=== PATIENT | female | born 1970 | race Caucasian/White ===

== ENCOUNTER 2019-03-22 23:30 | Inpatient (IN) | payer BC ==
[~2019-03-22] VITALS: Ht 162.6 cm; Wt 96.0 kg
[2019-03-23] MEDS ORDERED: SOD CHLORIDE 0.9% 1,000 ML IV ONE
--- NOTE | 2019-03-23 01:04 | ERD ---
ER Documentation Chief Complaint Chief Complaint Pt reports CP x 2-3 hours, SOB HPI This is a 48-year-old female presents for evaluation of chest pain and shortness of breath. Patient states that she has been having this for several hours, she reports that she has been having vaginal bleeding, and has felt generally weak. She was recently started on oral contraceptive therapy for her vaginal bleeding. She denies any leg swelling, she has not had any hemoptysis, no history of DVT or coagulopathy. ROS All systems reviewed and are negative except as per history of present illness. PMhx/Soc Medical and Surgical Hx: pt denies Medical Hx, pt denies Surgical Hx Hx Alcohol Use: No Hx Substance Use: No Hx Tobacco Use: No Smoking Status: Never smoker Physical Exam Vitals Vital Signs Date Temp Pulse Resp B/P (MAP) Pulse Ox O2 O2 Flow FiO2 Time Delivery Rate 03/23/19 99.1 89 19 129/67 100 Room Air 01:12 (87) 03/23/19 99.1 95 20 143/77 100 Room Air 00:32 (99) 03/22/19 99.1 97 20 147/76 99 Room Air 23:52 (99) 03/22/19 99.1 106 20 139/65 99 23:35 (89) Physical Exam Const: No acute distress Head: Atraumatic Eyes: Normal Conjunctiva ENT: Normal External Ears, Nose and Mouth. Neck: Full range of motion. No meningismus. Resp: Clear to auscultation bilaterally Cardio: Regular rate and rhythm, no murmurs Abd: Soft, non tender, non distended. Normal bowel sounds Skin: Skin is pale, no rashes. Back: No midline or flank tenderness Ext: No cyanosis, or edema Neur: Awake and alert Psych: Normal Mood and Affect Result Diagram: 03/22/19234603/22/192346 Results 24 hrs Laboratory Tests Test 03/22/19 23:47 03/22/19 23:55 03/23/19 00:07 White Blood Count 16.2 10^3/ul Red Blood Count 3.29 10^6/ul Hemoglobin 7.6 g/dl Hematocrit 25.1 % Mean Corpuscular Volume 76.3 fl Mean Corpuscular Hemoglobin 23.1 pg Mean Corpuscular 30.3 g/dl Hemoglobin Concent Red Cell Distribution Width 17.4 % Platelet Count 537 10^3/UL Mean Platelet Volume 8.8 fl Immature Granulocytes % 1.000 % Neutrophils % 68.2 % Lymphocytes % 24.1 % Monocytes % 4.8 % Eosinophils % 1.7 % Basophils % 0.2 % Nucleated Red Blood Cells % 0.0 /100WBC Immature Granulocytes # 0.160 10^3/ul Neutrophils # 11.1 10^3/ul Lymphocytes # 3.9 10^3/ul Monocytes # 0.8 10^3/ul Eosinophils # 0.3 10^3/ul Basophils # 0.0 10^3/ul Nucleated Red Blood Cells # 0.0 10^3/ul Sodium Level 142 mmol/L Potassium Level 4.0 mmol/L Chloride Level 106 mmol/L Carbon Dioxide Level 25 mmol/L Anion Gap 11 Blood Urea Nitrogen 15 mg/dl Creatinine 0.92 mg/dl Est Glomerular Filtrat > 60 mL/min Rate mL/min Glucose Level 109 mg/dl Calcium Level 9.1 mg/dl Total Bilirubin 0.2 mg/dl Direct Bilirubin 0.00 mg/dl Indirect Bilirubin 0.2 mg/dl Aspartate Amino 20 IU/L Transf (AST/SGOT) Alanine 24 IU/L Aminotransferase (ALT/SGPT) Alkaline Phosphatase 59 IU/L Troponin I < 0.012 ng/ml Total Protein 7.9 g/dl Albumin 4.3 g/dl Globulin 3.60 g/dl Albumin/Globulin Ratio 1.19 Triglycerides Level 291 mg/dl Cholesterol Level 230 mg/dl LDL Cholesterol, Calculated 138 mg/dl HDL Cholesterol 34 mg/dl Cholesterol/HDL Ratio 6.7 RATIO Thyroid Stimulating 5.350 MIU/L Hormone (TSH) Urine Color STRAW Urine Clarity CLEAR Urine pH 7.0 Urine Specific [place] 1.005 Urine Ketones NEGATIVE mg/dL Urine Nitrite NEGATIVE mg/dL Urine Bilirubin NEGATIVE mg/dL Urine Urobilinogen NEGATIVE mg/dL Urine Leukocyte Esterase NEGATIVE Maggie/ul Urine Microscopic RBC 1 /HPF Urine Microscopic WBC 1 /HPF Urine Bacteria FEW /HPF Urine Hemoglobin 3+ mg/dL Urine Glucose NEGATIVE mg/dL Urine Total Protein NEGATIVE mg/dl POC Beta HCG, Qualitative NEGATIVE Current Medications Medications Dose Sig/Juanis Start Time Status Last (Trade) Ordered Route PRN Stop Time Admin Dose Reason Admin Sodium 1,000 ml @ Q1H ONCE 03/23/19 DC 03/23/19 Chloride 1,000 mls/hr IV 00:00 00:02 03/23/19 00:59 Sodium 0 ml @ 0 Q0M ONCE 03/23/19 DC Chloride mls/hr IV 01:43 03/23/19 01:46 Procedures/MDM This is a 48-year-old female presents for chest pain and shortness of breath and this in the setting of abnormal uterine bleeding. Her ultrasound showed no acute findings, her cardiac work-up was negative, I have a low suspicion for pulmonary embolism of the etiology of her symptoms given that the most likely reason is symptomatic anemia, with a hemoglobin of 7.1. EKG: Rate/Rhythm: Sinus tachycardia QRS, ST, T-waves: No changes consistent w/ acute ischemia Impression: No evidence of ischemia or arrhythmia Accepting Care Team: Current data and ongoing care discussed. Primary: Tam Consulting: None Outstanding Data: none Departure Diagnosis: Primary Impression: Chest pain Chest pain type: unspecified Qualified Codes: R07.9 - Chest pain, unspecified Additional Impression: Anemia Anemia type: unspecified type Qualified Codes: D64.9 - Anemia, unspecified Condition: Stable ALEX MARTINO MD Mar 23, 2019 01:02
[2019-03-23] MEDS ORDERED: SOD CHLORIDE 0.9% 0 ML IV ONE (01:43)
[2019-03-23 04:17] VITALS: Ht 162.6 cm; Wt 96.0 kg
[2019-03-23] MEDS ORDERED: NITROGLYCERIN (SL) 0.4 MG TAB SL PRN (05:00)
[2019-03-23] MEDS ORDERED: ACETAMINOPHEN 325 MG TAB PO PRN (05:00)
[2019-03-23] MEDS ORDERED: ONDANSETRON 4 MG INJ IV PRN (05:00)
[2019-03-23 07:10] VITALS: BP 111/62; PULSE 83; RESP 18
[2019-03-23] MEDS ORDERED: ASPIRIN 81 MG TAB PO SCH (09:00)
--- NOTE | 2019-03-23 10:44 | HP ---
Date/Time of Note Date/Time of Note DATE: 03/23/19 TIME: 10:01 Assessment/Plan VTE Prophylaxis SCD contraindicated: other Pharmacological prophylaxis: other Pharm contraindication: other Lines/Catheters IV Catheter Type (from Nrs): Peripheral IV Urinary Cath still in place: No Assessment/Plan Assessment/Plan - Acute Chest pain, r/o acute coronary syndrome. No chest pain reported at present - admit to tele unit - Cardiology consult appreciated- Dr Mercado notified - Leukocytosis- possibly 2/2 mild UTI -will get ID consult -Anemia; transfuse PRN - status post 2 units of PRBC transfusion - FU CBC post transfusion- pending - Vaginal Bleeding - none reported today ; but patient sated she has bleeding from weeks and is seeing an OBGYN who started her on hormones pills; but she started more bleeding. - in service coordinator consult appreciated --Borderline urinary tract infection- patient denies any symptoms - Hypertension- stable - Hypothyroidism- TSH 5.350 - repeat TSH x 4 weeks - Hyperlipidemia - start on Atorvastatin - Thrombocytosis - monitor - SCDs for DVT prophylaxis Dw Dr Turcios Result Diagram: 03/22/19 2347 03/22/19 2347 Results 24hrs Laboratory Tests Test 03/22/19 23:47 03/22/19 23:48 03/22/19 23:55 03/23/19 00:07 White Blood Count 16.2 H Red Blood Count 3.29 L Hemoglobin 7.6 L Hematocrit 25.1 L Mean Corpuscular 76.3 L Volume Mean Corpuscular 23.1 L Hemoglobin Mean Corpuscular 30.3 L Hemoglobin Concent Red Cell 17.4 H Distribution Width Platelet Count 537 H Mean Platelet Volume 8.8 Immature 1.000 H Granulocytes % Neutrophils % 68.2 Lymphocytes % 24.1 Monocytes % 4.8 Eosinophils % 1.7 Basophils % 0.2 Nucleated Red Blood 0.0 Cells % Immature 0.160 H Granulocytes # Neutrophils # 11.1 H Lymphocytes # 3.9 H Monocytes # 0.8 Eosinophils # 0.3 Basophils # 0.0 Nucleated Red Blood 0.0 Cells # Sodium Level 142 Potassium Level 4.0 Chloride Level 106 Carbon Dioxide Level 25 Anion Gap 11 Blood Urea Nitrogen 15 Creatinine 0.92 Est Glomerular > 60 Filtrat Rate mL/min Glucose Level 109 Calcium Level 9.1 Total Bilirubin 0.2 Direct Bilirubin 0.00 Indirect Bilirubin 0.2 Aspartate Amino 20 Transf (AST/SGOT) Alanine 24 Aminotransferase (AL T/SGPT) Alkaline Phosphatase 59 Troponin I < 0.012 Total Protein 7.9 Albumin 4.3 Globulin 3.60 H Albumin/Globulin 1.19 Ratio Triglycerides Level 291 H Cholesterol Level 230 H LDL Cholesterol, 138 Calculated HDL Cholesterol 34 Cholesterol/HDL 6.7 Ratio Thyroid Stimulating 5.350 H Hormone (TSH) Beta HCG, < 2.4 Quantitative Urine Color STRAW Urine Clarity CLEAR Urine pH 7.0 Urine Specific 1.005 [place] Urine Ketones NEGATIVE Urine Nitrite NEGATIVE Urine Bilirubin NEGATIVE Urine Urobilinogen NEGATIVE Urine Leukocyte NEGATIVE Esterase Urine Microscopic 1 RBC Urine Microscopic 1 WBC Urine Bacteria FEW A Urine Hemoglobin 3+ H Urine Glucose NEGATIVE Urine Total Protein NEGATIVE POC Beta HCG, NEGATIVE Qualitative HPI/ROS Admit Date/Time Admit Date/Time Mar 23, 2019 at 02:02 ROS HPI This is a 48-year-old female with Hx Hypertension is admitted with c/o chest pain and shortness of breath, vaginal bleeding, and has felt generally weak. She was recently started on oral contraceptive therapy for her vaginal bleeding. Patient sated she has bleeding from weeks and is seeing an OBGYN who started her on hormones pills; but she started more bleeding.She denies any leg swelling, she has not had any hemoptysis, no history of DVT or coagulopathy.Patient denies any shortness of breath, chest pain, dizziness, palpitations, fever, headache,blurry vision, focal weakness/numbness, abdominal pain/ nausea/ vomitting diarrhea. Denies any vaginal bleeding at present. Patient is admitted to tele under Dr Turcios Patient family in room; 40mins spent in discussing the plan of care; reason all the different consults will see her. Patient/ Family verbalized understanding the plan. Only patient stated she is not sure if she wants to see all specialists and just wants to go home today. She was explained about all the health risks she would encounter if left against medical advice; but patient verbalized being responsible for any change in her condition. Dw Dr Arreola and staff EKG- Sinus Tachycardia CXR- chest x-ray revealed no evidence of acute cardiopulmonary abnormalities Pelvic US- pelvic ultrasound revealed thickened heterogeneous endometrial echo complex, multiple bilateral ovarian cysts ROS All systems reviewed and are negative except as per history of present illness. Constitutional: improved Eyes: no complaints ENT: no complaints Respiratory: no complaints Cardiovascular: other ( on and off chest pain, currently improved.) Gastrointestinal: no complaints Genitourinary: no complaints Musculoskeletal: no complaints Skin: no complaints Neurologic: no complaints Endocrine: no complaints Lymphatic: no complaints Psychological: nl mood/affect Immunologic: no complaints PMH/Family/Social Past Medical History Medical History: hypertension Medications Current Medications Acetaminophen (Tylenol Tab) 650 mg Q6H PRN PO MILD PAIN(1-3)OR ELEVATED TEMP; Start 03/23/19 at 05:00 Ondansetron HCl (Zofran Inj) 4 mg Q4H PRN IV NAUSEA AND/OR VOMITING; Start 03/23/19 at 05:00 Nitroglycerin (Nitroglycerin (Sl Tab) 0.4 Mg) 1 tab Q5M PRN SL ANGINA; Start 03/23/19 at 05:00 Carvedilol (Coreg) 3.125 mg BID PO Last administered on 03/23/19at 08:30; Admin Dose 3.125 MG; Start 03/23/19 at 09:00 Aspirin (Aspirin) 81 mg DAILY PO Last administered on 03/23/19at 08:29; Admin Dose 81 MG; Start 03/23/19 at 09:00 Coded Allergies: No Known Allergy (Unverified , 03/23/19) Past Surgical History Past Surgical Hx: no surgical history Family History Significant Family History: no pertinent family hx, other ( No history of sudden cardiac or early CAD) Social History Alcohol Use: none Smoking Status: Never smoker Drug Use: none Exam/Review of Systems Vital Signs Vitals Vital Signs Date Temp Pulse Resp B/P (MAP) Pulse Ox O2 O2 Flow FiO2 Time Delivery Rate 03/23/19 98.1 83 18 111/62 95 07:10 (78) 03/23/19 Room Air 03:30 Intake and Output 03/22/19 03/22/19 03/23/19 1515:00 23:00 07:00 IntakeIntake Total 1800 ml BalanceBalance 1800 ml Exam Constitutional: alert, oriented Psych: nl mood/affect Head: normocephalic Eyes: nl lids, nl sclera ENMT: nl external ears & nose Neck: non-tender Respiratory: clear to auscultation Cardiovascular: nl pulses Gastrointestinal: soft, non-tender Musculoskeletal: nl extremities to inspection Extremities: normal pulses Neurological: nl mental status, nl speech Skin: nl turgor Lymph: nontender BART JAIME Mar 23, 2019 10:12
[2019-03-23 11:03] VITALS: BP 119/60; PULSE 86; RESP 16
[2019-03-23 14:59] VITALS: BP 126/68; PULSE 83; RESP 18
--- NOTE | 2019-03-23 15:06 | RADRPT ---
Echocardiogram Report Patient Name: Gayla CARRILLO ID: [id number] : 1970 (48y 4m)Study Date: 03/23/2019 10:39:52 AM Gender: FAccession #: [id number] Tech: Prince Carrillo [facility] Location: [facility] Ref.Physician: MAREK LOMBARDI Height(Cm): BSA: Weight(Kg): Quality: AdequateOrder Physician: MAREK LOMBARDI Account #: Procedures: Echocardiographic Report: Transthoracic echocardiogram with complete 2D, M-Mode, and doppler examination. Indications: Chest Pain. Measurements: 2D/M Mode Doppler Measurement Value Normal Range Measurement Value Normal Range LVIDd 2D 4.5 [ 3.8 - 5.2 ] cm AV Peak [place] 1.5 [ 100.0 - 170.0 ] cm/sec LVIDs 2D 2.8 [ 2.2 - 3.5 ] cm AV Peak PG 10.0 [ 2.0 - 9.0 ] mmHg LVPWd 2D 0.9 [ 0.6 - 0.9 ] cm LVOT Peak [place] 1.3 [ 70.0 - 110.0 ] cm/sec IVSd 2D 1.0 [ 0.6 - 0.9 ] cm LVOT Peak PG 7.0 [ 2.0 - 6.0 ] mmHg AoR Diam 2D 2.4 [ 2.3 - 3.1 ] cm MV E Peak [place] 0.9 [ 60.0 - 130.0 ] cm/sec EDV 2D 91.5 [ 46.0 - 106.0 ] ml MV A [place] 0.9 [ 100.0 - 120.0 ] cm/sec ESV 2D 29.8 [ 14.0 - 42.0 ] ml MV E/A 1.0 [ 0.8 - 1.5 ] ratio EF 2D 67.4 [ 54.0 - 74.0 ] percent MV Decel Time 232 [ 104 - 258 ] msec LA Dimen 2D 4.0 [ 2.7 - 3.8 ] cm Lat E` Ky 0.2 [ 10.0 - 15.0 ] cm/sec Lateral E/E` 5.2 [ 1.0 - 2.0 ] ratio Med E` Ky 0.1 cm/sec MV E/A 1.0 [ 0.8 - 1.5 ] ratio TR Peak Ky 2.2 [ 100.0 - 280.0 ] cm/sec TR Peak PG 20.0 mmHg RVSP 23.0 [ 10.0 - 36.0 ] mmHg Findings: Left Ventricle: Normal left ventricular systolic function. Normal left ventricular cavity size. Normal left ventricular wall thickness. Ejection fraction is visually estimated at 60-65 %. Abnormal Diastolic Function. Right Ventricle: Normal right ventricular size. Normal right ventricular systolic function. Left Atrium: The left atrium is normal in size. Right Atrium: The right atrium is normal in size. Mitral Valve: Mild mitral leaflet calcification. Mild mitral annular calcification. Trace mitral regurgitation. Aortic Valve: No significant aortic stenosis or insufficiency. Aortic cusps appear mildly calcified. Tricuspid Valve: Normal appearance of the tricuspid valve. The estimated Peak RVSP is 23 mmHg. There is trace tricuspid regurgitation. Pericardium: Normal pericardium with no significant pericardial effusion. Aorta: Normal aortic root. IVC: Normal size and normal respiratory collapse consistent with normal right atrial pressure. Conclusions: Normal left ventricular systolic function. Normal left ventricular cavity size. Normal left ventricular wall thickness. Ejection fraction is visually estimated at 60-65 %. Abnormal Diastolic Function. Mild mitral leaflet calcification. Mild mitral annular calcification. Trace mitral regurgitation. Normal appearance of the tricuspid valve. The estimated Peak RVSP is 23 mmHg. There is trace tricuspid regurgitation. Electronically Signed By: Sergio Mercado 2019-03-23 15:06:02 PDT
--- NOTE | 2019-03-23 16:30 | QN ---
Documentation Comment 48 yo with menorrhagia and Anemia cueently not actively bleeding,She is not NPo PMH Deneis PSH Denies Hb 10 Vs WNL Gen NAD Abd soft NT ND Genitalia No blood at perineum Ultrasound Thickened Endometrium --->Patient is not actively bleeding and she needs to follow up with her Family Support Worker to perform a D&C&Hysteroscopy or Endometrial biopsy to R/o Hyperplasia or Malignancy --->She can be discharged on Provera or megace 40 mg po daily and follow up with her Family Support Worker --->The need for D&C&Hysteroscopy or Endometrial biopsy extensively discussed with patient --->Questions answered --->precautions discussed ELIESER SAVAGE M.D. Mar 23, 2019 16:30
[2019-03-23] MEDS ORDERED: ATORVASTATIN 20 MG TAB PO SCH (21:00)
[2019-03-23] MEDS ORDERED: ATORVASTATIN 10 MG TAB PO SCH (21:00)
--- NOTE | 2019-03-23 21:23 | CONS ---
DATE OF ADMISSION: 03/23/2019 DATE OF CONSULTATION: 03/23/2019 REASON FOR CONSULTATION: Chest pain, assess for acute coronary syndrome. REQUESTING PHYSICIAN: Marek Turcios MD HISTORY OF PRESENT ILLNESS: The patient is a 48-year-old female with history of hypertension, hypoth yroidism, dyslipidemia vaginal bleeding recently started on oral contraceptive pill, who presented wi th complaints of substernal chest pain ongoing for approximately an hour prior to admit, described as a pressure-like sensation with radiation toward her neck and felt like she was choking. Upon arriva l in the emergency department, temperature of 99.1, blood pressure 139/65, pulse 106, respiratory rat e 20, satting 99%. The patient's labs revealed a white count 16.2, hemoglobin 7.6, MCV of 76.3, plat elet count of 537. Sodium of 142, potassium 4.0, creatinine 0.9, BUN 15, AST 20, ALT 24. Troponin n egative. LDL 130, HDL 34. TSH 5.35. UA borderline. The patient underwent a chest x-ray revealing no evidence of acute cardiopulmonary abnormalities and a pelvic ultrasound revealed thickened heterog eneous endometrial echo complex, multiple bilateral ovarian cysts. The patient's electrocardiogram r evealed sinus tachycardia, rate 108, normal axis, normal intervals, ST flattening in aVL. The patien t has been admitted to the floor and since admit to floor, has had negative troponins x2, denies ongo ing chest pain, has been transfused packed RBCs. PAST MEDICAL HISTORY: As above in HPI. MEDICATIONS CURRENTLY IN HOSPITAL: 1. Lipitor 10 at bedtime. 2. Carvedilol 3.125 mg p.o. b.i.d. 3. Aspirin 81 mg daily. 4. Tylenol p.r.n. 5. Zofran p.o. p.r.n. ALLERGIES: NO KNOWN DRUG ALLERGIES. SOCIAL HISTORY: No current tobacco, ETOH or illicit drug use. FAMILY HISTORY: No history of sudden cardiac or early CAD. REVIEW OF SYSTEMS: As above in HPI. CONSTITUTIONAL: No fevers, chills. PULMONARY: No current shortness of breath. CARDIOVASCULAR: Intermittent chest pain, currently improved. GASTROINTESTINAL: No vomiting. GENITOURINARY: Vaginal bleeding. PSYCHIATRIC: No documented psych history. NEUROLOGIC: No documented history of CVA. ENDOCRINE: Documented diabetes mellitus. PHYSICAL EXAMINATION: VITAL SIGNS: Temperature of 97.6, blood pressure 119/60, pulse 86 with satting 98%. GENERAL: The patient is alert, awake, no acute distress. NECK: JVP approximately 8 to 9 cm of water. CHEST: Fair air movement throughout. HEART: Regular rate and rhythm. Normal S1, S2, I/ systolic murmur, nondisplaced PMI. ABDOMEN: Positive bowel sounds, soft. EXTREMITIES: No significant pitting edema, 1+ pulses bilateral posterior tibial. LABORATORY DATA: Most recent from today, white count 15.5, hemoglobin 10.3, platelet count 548. Sod ium 140, potassium 4.2, creatinine 0.5, BUN 11. IMAGING STUDIES: As above in HPI. No further imaging studies for my review at this time. ECG: As above in HPI. No further electrocardiograms for my review at this time. IMPRESSION: 1. Chest pain, assess for acute coronary syndrome, occurred in the setting of significant anemia wit h ongoing vaginal bleed, likely etiology. 2. History of hypertension, currently under reasonable control. 3. Dyslipidemia. 4. Vaginal bleeding. 5. Anemia, status post transfusion. 6. Borderline urinary tract infection. RECOMMENDATIONS: 1. At this time would maintain patient on telemetry monitoring to follow rhythm and rate control lakhwinder sely. 2. Would complete the patient's rule out for myocardial infarction, thus send a final troponin to en sure the patient's chest pain was not indicative of an acute coronary syndrome such as an acute myoca rdial infarction. 3. Continue the patient's baseline carvedilol for blood pressure control and the patient's statin wi th slight increase given the patient's elevated LDL of 138, HDL 34. 4. Follow the patient's hemoglobin closely with further transfusion if necessary. 5. We will hold the patient's aspirin at this time to not provoke any further bleeding. 6. Check a 2D echo to further assess ejection fraction, wall motion, rule any major abnormalities an d will consider stress echo on the patient which likely be considered even as an outpatient if the pa tient has no further chest pain as an inpatient. Thank you for allowing me to take part in the care of this patient. I will continue to follow very c losely with you. Further recommendations will be made as the patient progresses through the [facility] clinical course. Dictated By: CRISTBÓAL HARRISON/YU Conf#: [id number] DID#: [id number] CC: MAREK TURCIOS MD;*EndCC*
== END 2019-03-23 17:57 | disposition left against medical advice (07) | DRG 812 ==
LOC: E/R 23:30 → TEL 03-23 02:02
PROVIDERS: ADMIT Internal Medicine; ATTEND Internal Medicine
PROC: 30233N1 Transfusion of Nonautologous Red Blood Cells into Peripheral Vein, Percutaneous Approach (ICD-10-PCS; principal; 2019-03-23)
DX: D64.89 Other specified anemias (principal); N39.0 Urinary tract infection, site not specified; R07.89 Other chest pain; I10 Essential (primary) hypertension; E78.5 Hyperlipidemia, unspecified; E03.9 Hypothyroidism, unspecified; N92.0 Excessive and frequent menstruation with regular cycle; D47.3 Essential (hemorrhagic) thrombocythemia
CPT/HCPCS: 36430; 71045; 76856; 80048; 80053; 80061; 81001; 81025; 82550; 82553; 83605; 84443; 84484; 84702; 85025; 86850; 86900; 86901; 86920; 93005; 93306; J7030; J7040; P9016